=== PATIENT | female | born 1990 | race American Indian/Alaskan Native ===

== ENCOUNTER 2025-02-25 14:02 | Emergency (ER) | payer MEDICAID, SELFPAY ==
[2025-02-25 14:26] VITALS: BP 127/74; PULSE 91; RESP 18; TEMP 36.8; O2SAT 99
--- NOTE | 2025-02-25 14:29 | XR_ITS ---
Examination: CT brain head without contrast. 2-D sagittal coronal reconstructions Date and time of exam:February 25, 2025 1519 hours INDICATIONS: Injury to the head today, head pain CTDI: vol (mGy):54.5 DLP: (mGycm):1064 Technique: Multiple CT axial sections of the brain have been obtained, 5 mm slice thickness. Contrast has not been administered. 2-D sagittal, coronal reconstructions have been obtained Low dose protocols were performed. One or more of the following dose reduction techniques were used; automated exposure control, adjustment of the mA and/or KV according to patient size, use of iterative reconstruction technique. Findings: No significant ventricular enlargement. Intra-axial or extra-axial hemorrhage density is not seen. No mass effect or midline shift Basal cisterns are not remarkable. Fourth ventricle is midline. Cranial vault intact. Impression: Negative for acute hemorrhage, mass effect or midline shift
--- NOTE | 2025-02-25 14:29 | XR_ITS ---
Examination: CT cervical spine without contrast 2-D sagittal reconstructions 2-D coronal reconstructions 3-D reconstructions. Exam date and time:February 25, 2025 1518 hours INDICATIONS: Injury to the neck today, neck pain CTDI:vol (mGy) 9.55 DLP: (mGycm) 217 Technique: Multiple 2 mm axial sections of the cervical spine have been obtained. The coronal and sagittal reconstructions have been obtained. 3-D reconstructions have been obtained. Low dose protocols were performed. One or more of the following dose reduction techniques were used; automated exposure control, adjustment of the mA and/or KV according to patient size, use of iterative reconstruction technique. Findings: Axial sections demonstrate intact base of the skull. C1 exhibit satisfactory relationship to the odontoid. No acute cervical vertebral body fracture seen. Alignment posterior spinous processes satisfactory. Impression: No acute cervical fracture.
--- NOTE | 2025-02-25 14:29 | XR_ITS ---
Examination: CT chest, without intravenous contrast. CT abdomen, without intravenous contrast. CT pelvis, without intravenous contrast. 2-D sagittal and coronal reconstructions. 3-D reconstructions. Date and time of exam:February 25, 2025 1522 hours INDICATIONS: Injury to the chest and abdomen today, chest pain abdomen pain CTDI vol (mgy) 7.87 DLP (MGycm)609 Technique: Multiple CT images, 3.0 mm slice thickness, obtained chest, abdomen, pelvis, with the high-resolution 64 slice scanner.. Sagittal and coronal 2-D reconstructions are obtained. 3-D reconstructions Low dose protocols were performed. One or more of the following dose reduction techniques were used; automated exposure control, adjustment of the mA and/or KV according to patient size, use of iterative reconstruction technique. Findings: Thoracic aorta pulmonary arteries intact No hemopericardium No pneumothorax pulmonary contusion or hemothorax Manubrium, body the sternum, thoracic lumbar vertebral bodies and sacral segments appear intact Ribs appear intact No liver splenic or renal laceration No perinephric hematoma Contracted gallbladder Abdominal aorta intact, no free blood in the abdomen Negative for pneumoperitoneum Urinary bladder contracted Hips bones of the pelvis intact IMPRESSION: Thoracic aorta pulmonary arteries intact No hemopericardium, pneumothorax, pulmonary contusion or hemothorax. No abdominal parenchymal laceration Abdominal aorta intact No free blood in the abdomen or pelvis Osseous structures intact
[2025-02-25 15:04] LABS: HCG Qualitative,Urine Negative
--- NOTE | 2025-02-25 15:57 | EDNOTE_ITS ---
ED Fall Injury RME/HPI General Chief Complaint: Fall Stated Complaint: Fell and hit head. Time Seen by Provider: 02/25/25 14:16 Arrival date/time: 02/25/25 14:02 34-year-old female presents emergency department today states she was on horseback today patient reports that she fell from a horse patient reports had neck pain as well as lower back pain patient ports no fever nausea vomiting patient reports no abdominal pain chest pain or shortness of breath Limitations: no limitations Related Data Previous Rx's ?Medication ?Instructions ?Recorded Hydrocodone/Acetaminophen * (NORCO 1 - 2 tab PO Q4H TX N PAIN #15 tabs 05/20/17 5/325 *) cyclobenzaprine 10 mg tablet 10 mg PO TID PRN muscle s pasm 10 02/25/25 days #30 tab-caps hydrocodone 5 mg-acetaminophen 325 1 tab PO BID PRN pa in #8 tabs 02/25/25 mg tablet ibuprofen 600 mg tablet 600 mg PO Q6H #30 tabs 02/25 Allergies Allergy/AdvReac Type Severity Reaction Status Date / Time NKA* Allergy Uncoded 02/25/25 14:05 Review of Systems Review of Systems Systems Reviewed: All systems reviewed, normal except as documented Constitutional Constitutional: Reports system reviewed and no additional complaints, except as documented, Denies fever(s) and Denies headache(s) Eyes Eyes: Reports system reviewed and no additional complaints, except as documented and Denies blurry vision ENT Ears, Nose, Mouth, and Throat: Reports system reviewed and no additional complaints, except as documented, Denies headache(s), Denies nasal congestion, Denies nasal discharge and Reports neck pain Cardiovascular Cardiovascular: Reports system reviewed and no additional complaints, except as documented, Denies chest pain and Denies dyspnea Respiratory Respiratory: Reports system reviewed and no additional complaints, except as documented, Denies chest congestion, Denies cough and Denies dyspnea Gastrointestinal Gastrointestinal: Reports system reviewed and no additional complaints, except as documented and Denies abdominal pain Musculoskeletal Musculoskeletal: Reports system reviewed and no additional complaints, except as documented, Reports back pain and Reports neck pain Integumentary/Breasts Skin/Breast: Reports system reviewed and no additional complaints, except as documented and Denies rash Neurologic Neurologic: Reports system reviewed and no additional complaints, except as documented, Reports as per HPI and Denies headache(s) Past Medical History Social History SMOKING STATUS: Never smoker ED Exam General Limitations: Present no limitations General appearance: Present alert and in no apparent distress Head Head exam: Present atraumatic and normocephalic Eye Eye exam: Present normal appearance, PERRL and EOMI; Absent conjunctival injection ENT ENT exam: Present normal exam, normal oropharynx and mucous membranes moist Neck Neck exam: Present normal inspection, full ROM, trachea midline and tenderness Chest Chest inspection: Present normal inspection and symmetric chest wall rise; Absent tenderness Respiratory Respiratory exam: Present normal lung sounds bilaterally; Absent respiratory distress Cardiovascular Cardiovascular exam: Present regular rate, normal rhythm and normal heart sounds Abdominal Exam Abdominal exam: Present soft and normal bowel sounds; Absent distention, tenderness, guarding, rebound or rigidity Extremities Exam Extremities exam: Present normal inspection and full ROM Back Exam Back exam: Present normal inspection and full ROM Neurological Exam Neurological exam: Present alert, oriented X3 and CN II-XII intact Psychiatric Psychiatric exam: Present normal affect and normal mood Skin Skin exam: Present warm, dry, intact and normal color Course Quality Measures none Orders Category Date Time Status CT cervical spine wo con Stat Exams 02/25/25 14:[address] chest abdomen pelvis wo Stat Exams 02/25/25 14:[address] head/brain wo con Stat Exams 02/25/25 14:29 Completed HCG Qualitative,Urine Stat Lab 02/25/25 14:37 Completed Vital Signs Vital signs: Vital Signs Temperature 98.3 F 02/25/25 14:26 Pulse Rate 91 02/25/25 14:26 Respiratory Rate 18 02/25/25 14:26 Blood Pressure 127/74 02/25/25 14:26 Pulse Oximetry (%) 99 02/25/25 14:26 Oxygen Delivery Method Room Air 02/25/25 14:26 O2 saturation 9% room air with normal limits Fall MDM Narrative MDM Narrative:: 34-year-old female presents emergency department today states she was on horseback today patient reports that she fell from a horse patient reports had neck pain as well as lower back pain patient reports no fever nausea vomiting patient reports no abdominal pain chest pain or shortness of breath On exam patient well-appearing patient does not appear toxic no acute distress Imaging obtained no acute emergent findings noted Patient discharged home in no distress to follow-up with primary care doctor in the next 24 to 48 hours and for any worsening symptoms to return to the ER immediately Patient data External records reviewed:: [facility] previous records Clinical information provided by:: patient Social determinants that could affect healthcare access:: none Patient has the following chronic illnesses:: None How is presenting disease/condition affected by chronic disease/condition?: no chronic disease Evaluation data The following diagnostics were reviewed and interpreted by me:: radiology exam(s) Lab and/or radiology exams considered but not ordered:: Radiology obtain Interpretation Summary: Me Medications / Prescriptions Medications or Prescriptions considered but not ordered:: Given Medication administrations:: Given Consultations Consultation(s) initiated? (list below): No Diagnosis Fall Differential Diagnosis: other (Fall, closed head injury, cervical fracture, lumbar back pain) Most likely diagnosis given after review of the tests above:: Back pain, neck pain Admission Indicated Admission indicated?: not indicated Admission Request Was there a request for admission?: No Disposition Plan Disposition Plan: Discharge Discharge Attestation Discharge Attestation: The patient and all family members were given an opportunity to ask questions and understood the discharge instructions. Discharge instructions specifically effects, indications for sooner follow up or return to the emergency department, and the expected course of current diagnosis. Patient condition: Stable Discharge Plan Plan Patient Disposition: HOME (Self Care) Discharge Disposition comment: Stable Prescriptions/Referrals Prescriptions/Med Rec: New cyclobenzaprine 10 mg tablet 10 mg PO TID PRN (Reason: muscle spasm) 10 Days Qty: 30 0RF hydrocodone-acetaminophen 5-325 mg tablet 1 tab PO BID MDD 10 PRN (Reason: pain) Qty: 8 0RF ibuprofen 600 mg tablet 600 mg PO Q6H Qty: 30 0RF No Action Hydrocodone/Acetaminophen * (NORCO 5/325 *) 1 TAB tablet 1 - 2 tab PO Q4H PRN (Reason: PAIN) Qty: 15 0RF Rx Instructions: FOR PAIN Referrals: Sam Latham PA-C [Primary Care Provider] - In 1 week Problem List Clinical Impression: Fall, CHI (closed head injury), Neck pain Patient/Caregiver Discharge Instructions Education Materials: ED Back Care Tips Additional Instructions: Please follow up with your primary care doctor in the next 24-48hrs for any worsening symptoms return here immediately Print Language: Bulgarian Stand Alone Forms: Lori Award Info., Work/School Release, Patient Portal Info Letter HONG/NEYDA Supervising Physician CITLALLI Supervising Physician: Dr. medrano
== END 2025-02-25 16:12 | disposition home or self-care (01) ==
PROVIDERS: Nurse Practitioner Primary Care; Emergency Provider Emergency Medicine; PCP Physician Assistant
DX: S09.90XA Unspecified injury of head, initial encounter (principal); M54.2 Cervicalgia; V80.010A Animal-rider injured by fall from or being thrown from horse in noncollision accident, initial encounter; Y93.52 Activity, horseback riding
CPT/HCPCS: 70450; 71250; 72125; 74176; 81025; 99284

== ENCOUNTER → 2025-05-19 | Outpatient (CLI) | payer OTHER, SELFPAY ==
--- NOTE | 2025-05-19 10:30 | XR_ITS ---
Examination: Transvaginal ultrasound of the pelvis, complete Technique: Transvaginal sonographic images pelvis performed using perez scale imaging Exam date and time: May 19, 2025, 1104 hours INDICATIONS: Irregular menses 10 years, history of ovarian cystic disease. FINDINGS: Uterus 7.0 cm endometrial stripe 0.7 cm, no uterine mass or intrauterine gestation Right ovary 4.4 cm her toe flow Left ovary 2.9 cm arterial flow Numerous bilateral ovarian follicles IMPRESSION: No uterine mass or intrauterine gestation..
== END | disposition home or self-care (01) ==
PROVIDERS: PCP Nurse Practitioner Family; Referring Provider Nurse Practitioner Family; Visit Provider Nurse Practitioner Family
DX: E28.2 Polycystic ovarian syndrome (principal); N92.6 Irregular menstruation, unspecified
CPT/HCPCS: 76830